=== PATIENT | male | born 1945 | race Caucasian/White ===

== ENCOUNTER 2018-01-08 17:05 | Emergency (ER) | payer MEDICARE ==
[2018-01-08] MEDS ORDERED: Labetalol 20 MG/4 ML Syringe IVPUSH ONE ×2 (17:22→18:05)
--- NOTE | 2018-01-08 17:23 | EDM.PDOC ---
ED HPI GENERAL MEDICAL PROBLEM - General Chief Complaint: Neurological Problem Stated Complaint: STROKE SYMPTOMS Time Seen by Provider: 01/08/18 17:25 Source of Information: Reports: Patient, Family History Limitations: Reports: No Limitations - History of Present Illness INITIAL COMMENTS - FREE TEXT/NARRATIVE: Pt arrived with a true expressive aphasia. He has been doing a fair amount of drinking and he has not been taking his meds regularly. Onset: Other (pt was last seen well at 11 pm last nite. ) Duration: Hour(s):, Other ( Pt came to the store this afternoon nd no one cou ld understand what he was saying. ) Location: Reports: Head, Other ( Pt is able to move all extremities and appeared to have normal strength) - Related Data Allergies Allergy/AdvReac Type Severity Reaction Status Date / Time azithromycin Allergy Cannot Verified 01/08/18 18:05 Remember erythromycin base Allergy Diarrhea Verified 09/24/13 14:48 [Erythromycin Base] gentamicin [Gentamicin] Allergy Rash Verified 09/24/13 14:48 Home Meds: Home Meds NK [No Known Home Meds] 09/24/13 [History] Social & Family History - Tobacco Use Smoking Status *Q: Current Every Day Smoker Years of Tobacco use: 50 Packs/Tins Daily: 1 - Alcohol Use Days Per Week of Alcohol Use: 7 Number of Drinks Per Day: 10 Total Drinks Per Week: 70 - Recreational Drug Use Recreational Drug Use: No ED ROS GENERAL - Review of Systems Review Of Systems: See Below Constitutional: Reports: No Symptoms HEENT: Reports: No Symptoms Respiratory: Reports: No Symptoms Cardiovascular: Reports: No Symptoms Endocrine: Reports: No Symptoms GI/Abdominal: Reports: No Symptoms : Reports: No Symptoms Musculoskeletal: Reports: No Symptoms Skin: Reports: No Symptoms Neurological: Reports: Other (pt has expressive apasia, he has no other defcits ) ED EXAM, NEURO - Physical Exam Exam: See Below Text/Narrative:: pt arrived with expressive apasia. He is moving all limbs and is walking ok. Exam Limited By: No Limitations General Appearance: Alert, No Apparent Distress, Other (He is not able to express himself. pupils equal and reactive. ) Ears: Normal TMs Nose: Normal Inspection Throat/Mouth: Normal Inspection Head Exam: Other (pt dose have some abrasions on the left side of his head and some bruising. ) Neck: Normal Inspection Respiratory/Chest: No Respiratory Distress Cardiovascular: Regular Rate, Rhythm, Tachycardia, Other (hypertension, Bp systolic greater than 200. ) GI/Abdominal: Soft, Non-Tender (Male) Exam: Deferred Rectal (Males) Exam: Deferred Neurological: Alert, Oriented x 3, Other (pt has expressive aphasia) Back Exam: Normal Inspection Extremities: Normal Inspection Course - Vital Signs Last Recorded V/S: Last Vital Signs Temp 36.4 C 01/08/18 17:22 Pulse 87 01/08/18 18:17 Resp 14 01/08/18 17:58 BP 178/98 H 01/08/18 18:17 Pulse Ox 98 01/08/18 17:22 - Orders/Labs/Meds Orders: Active Orders 24 hr Category Date Time Status EKG Documentation Completion [RC] ASDIRECTED Care 01/08/18 17:18 Active Head wo Cont [CT] Stat Exams 01/08/18 17:19 Taken UA W/MICROSCOPIC [URIN] Urgent Lab 01/08/18 17:18 Ordered Sodium Chloride 0.9% [Normal Saline] 1,000 ml Med 01/08/18 17:30 Active IV ASDIRECTED levETIRAcetam [Keppra] 1,000 mg Med 01/08/18 18:17 Active Sodium Chloride 0.9% [Normal Saline] 100 ml IV ONETIME EKG 12 Lead [EK] Routine Ther 01/08/18 17:18 Ordered Medication Orders Sodium Chloride (Normal Saline) 1,000 mls @ 125 mls/hr IV ASDIRECTED KELTON Last Admin: 01/08/18 17:55 Dose: 125 mls/hr Levetiracetam 1,000 mg/ Sodium (Chloride) 110 mls @ 400 mls/hr IV ONETIME ONE Stop: 01/08/18 18:31 Last Admin: 01/08/18 18:23 Dose: 400 mls/hr Labs: Laboratory Tests 01/08/18 01/08/18 01/08/18 Range/Units 17:18 17:18 17:51 WBC 11.3 H (4.5-11.0) K/uL RBC 3.75 L (4.30-5.90) M/uL Hgb 12.9 D (12.0-15.0) g/dL Hct 37.0 L (40.0-54.0) % MCV 99 H (80-98) fL MCH 34 H (27-31) pg MCHC 35 (32-36) % Plt Count 320 (150-400) K/uL Neut % (Auto) 77 H (36-66) % Lymph % (Auto) 10 L (24-44) % [place] % (Auto) 12 H (2-6) % Eos % (Auto) 1 L (2-4) % Baso % (Auto) 0 (0-1) % Sodium 135 L (140-148) mmol/L Potassium 3.8 (3.6-5.2) mmol/L Chloride 97 L (100-108) mmol/L Carbon Dioxide 27 (21-32) mmol/L Anion Gap 14.8 H (5.0-14.0) mmol/L BUN 24 H D (7-18) mg/dL Creatinine 1.3 (0.8-1.3) mg/dL Est Cr Clr Drug Dosing 44.10 mL/min Estimated GFR (MDRD) 55 L (>60) Glucose 116 H (74-106) mg/dL Calcium 9.1 (8.5-10.1) mg/dL Total Bilirubin 0.6 (0.2-1.0) mg/dL AST 27 (15-37) U/L ALT 17 (12-78) U/L Alkaline Phosphatase 100 (46-116) U/L Total Protein 7.4 (6.4-8.2) g/dL Albumin 3.5 (3.4-5.0) g/dL Globulin 3.9 H (2.3-3.5) g/dL Albumin/Globulin Ratio 0.9 L (1.2-2.2) Ethyl Alcohol < 3 mg/dL Meds: Medications Generic Name Dose Route Start Last Admin Trade Name Freq PRN Reason Stop Dose Admin Sodium Chloride 1,000 mls @ 125 mls/hr 01/08/18 17:30 01/08/18 17:55 Normal Saline IV 125 mls/hr ASDIRECTED KELTON Administration Levetiracetam 1,000 mg/ Sodium 110 mls @ 400 mls/hr 01/08/18 18:17 01/08/18 18:23 Chloride IV 01/08/18 18:31 400 mls/hr ONETIME ONE Administration Discontinued Medications Generic Name Dose Route Start Last Admin Trade Name Freq PRN Reason Stop Dose Admin Sodium Chloride Confirm 01/08/18 18:21 Normal Saline Administered 01/08/18 18:22 Dose 50 mls @ as directed .ROUTE .STK-MED ONE Sodium Chloride Confirm 01/08/18 18:24 Normal Saline Administered 01/08/18 18:25 Dose 100 mls @ as directed .ROUTE .STK-MED ONE Labetalol HCl 20 mg 01/08/18 17:22 01/08/18 17:55 Normodyne IVPUSH 01/08/18 17:23 20 mg NOW ONE Administration Protocol Labetalol HCl 20 mg 01/08/18 18:05 01/08/18 18:14 Normodyne IVPUSH 01/08/18 18:06 20 mg NOW ONE Administration Protocol - Re-Assessments/Exams Free Text/Narrative Re-Assessment/Exam: 01/08/18 18:14 Pt was given 2-- 20mg doses -- for bp . He had a normal ekg except for tachcardia. His creatnine is mildly elevated 01/08/18 18:18 This was discussed with neurosurgery and they wished for him to have a gm of kepara Departure - Departure Time of Disposition: 18:18 Disposition: DC/Tfer to Acute Hospital 02 Condition: Fair Clinical Impression: Subdural hematoma, acute, Hypertension - Discharge Information Referrals: PCP,None [Primary Care Provider] - Forms: ED Department Discharge Care Plan Goals: transfer to [facility]. - My Orders Last 24 Hours: My Active Orders 01/08/18 17:18 EKG Documentation Completion [RC] ASDIRECTED UA W/MICROSCOPIC [URIN] Urgent EKG 12 Lead [EK] Routine 01/08/18 17:19 Head wo Cont [CT] Stat 01/08/18 17:30 Sodium Chloride 0.9% [Normal Saline] 1,000 ml IV ASDIRECTED 01/08/18 18:17 levETIRAcetam [Keppra] 1,000 mg Sodium Chloride 0.9% [Normal Saline] 100 ml IV ONETIME - Assessment/Plan Last 24 Hours: My Active Orders 01/08/18 17:18 EKG Documentation Completion [RC] ASDIRECTED UA W/MICROSCOPIC [URIN] Urgent EKG 12 Lead [EK] Routine 01/08/18 17:19 Head wo Cont [CT] Stat 01/08/18 17:30 Sodium Chloride 0.9% [Normal Saline] 1,000 ml IV ASDIRECTED 01/08/18 18:17 levETIRAcetam [Keppra] 1,000 mg Sodium Chloride 0.9% [Normal Saline] 100 ml IV ONETIME
[2018-01-08] MEDS ORDERED: Sodium Chloride 0.9% 1,000 ML IV SCH (17:30)
[2018-01-08] MEDS ORDERED: levETIRAcetam 1,000 MG in Sodium Chloride 0.9% 100 ML IV ONE (18:17)
[2018-01-08] MEDS ORDERED: Sodium Chloride 0.9% 50 ML ONE (18:21)
[2018-01-08] MEDS ORDERED: Sodium Chloride 0.9% 100 ML ONE (18:24)
[2018-01-08] MEDS ORDERED: Acetaminophen 500 MG Tab PO ONE (19:01)
== END 2018-01-08 19:30 ==
LOC: JP.ED 17:05
DX: I62.01 Nontraumatic acute subdural hemorrhage (principal); I10 Essential (primary) hypertension; Z88.1 Allergy status to other antibiotic agents; F17.210 Nicotine dependence, cigarettes, uncomplicated
CPT/HCPCS: 36415; 70450; 80053; 85025; 93005; 96361; 96365; 96375; 99285; A9270; G0480; J1953; J7030; J7040

== ENCOUNTER 2020-03-23 01:50 | Emergency (ER) | payer MEDICARE, MEDICAID ==
[2020-03-23] MEDS ORDERED: amLODIPine 5 MG Tab PO ONE (02:04)
--- NOTE | 2020-03-23 02:17 | EDM.PDOC ---
ED HPI GENERAL MEDICAL PROBLEM - General Chief Complaint: Neuro Symptoms/Deficits Stated Complaint: MEDICAL VIA [facility] Time Seen by Provider: 03/23/20 02:05 Source of Information: Reports: Patient, EMS, Old Records, RN History Limitations: Reports: No Limitations - History of Present Illness INITIAL COMMENTS - FREE TEXT/NARRATIVE: 74 yo male from [facility] presents via EMS with about a 20 min period of R arm numbness/weakness that has since resolved. He has a slightly worse HEATH tonight that has been present for about 3 d. Is on amlodipine 2.5 mg daily and says he BP has been in the 130's/80's up until tonight. Does have a pHx of TIA's. Has a pHx of both ETOH and tobacco abuse. 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 PHx also of some CRF/chronic lung dz as well. Onset: Today, Sudden Onset Date: 03/23/20 Duration: Minutes: (~20), Resolved Prior to Arrival Location: Reports: Upper Extremity, Right Quality: Reports: Other (numbness) Severity: Moderate Improves with: Reports: Other (time-resolved on arrival ) Worsens with: Reports: Other (uncertain) Context: Reports: Other (See HPI) Associated Symptoms: Reports: Headaches (mild L sided) Treatments FIRST AID INSTRUCTOR: Reports: Other (see below) (none) Headache Pain Score (Numeric/FACES): 3 - Related Data Allergies Allergy/AdvReac Type Severity Reaction Status Date / Time azithromycin Allergy Cannot Verified 03/23/20 02:01 Remember erythromycin base Allergy Diarrhea Verified 03/23/20 02:01 [Erythromycin Base] gentamicin [Gentamicin] Allergy Rash Verified 03/23/20 02:01 Home Meds: Home Meds Mag Oxide/D3/Turmeric Rt Xt [Magnesium-Vit D3-Turmeric Cap] 400 mg PO DAILY 03/23/20 [History] Omeprazole 20 mg PO DAILY 03/23/20 [History] Tiotropium [Spiriva Handihaler] 2 dose INH DAILY 03/23/20 [History] amLODIPine [Norvasc] 2.5 mg PO DAILY 03/23/20 [History] carvediloL [Carvedilol] 1 tab PO BID 03/23/20 [History] ED ROS GENERAL - Review of Systems Review Of Systems: See Below Constitutional: Reports: No Symptoms HEENT: Reports: No Symptoms Respiratory: Reports: No Symptoms Cardiovascular: Reports: No Symptoms GI/Abdominal: Reports: No Symptoms : Reports: No Symptoms Musculoskeletal: Reports: No Symptoms Skin: Reports: No Symptoms Neurological: Reports: Headache (mild), Numbness (R am resolved on arrival), Weakness (R arm, resolved on arrival) ED EXAM, NEURO - Physical Exam Exam: See Below Exam Limited By: No Limitations General Appearance: Alert, WD/WN, No Apparent Distress Eye Exam: Bilateral Eye: EOMI, Normal Inspection, PERRL Ears: Normal External Exam, Normal Canal, Hearing Loss Nose: Normal Inspection, No Blood Throat/Mouth: Normal Inspection, Normal Lips, Normal Oropharynx, Normal Voice, No Airway Compromise Head Exam: Atraumatic, Normocephalic Neck: Normal Inspection Respiratory/Chest: No Respiratory Distress, Lungs Clear, Normal Breath Sounds, No Accessory Muscle Use Cardiovascular: Regular Rate, Rhythm, No Edema GI/Abdominal: Normal Bowel Sounds, Soft, Non-Tender, No Distention Neurological: Alert, Normal Mood/Affect, CN II-XII Intact, No Motor/Sensory Deficits, Oriented x 3, Other (no neuro deficits) Back Exam: Normal Inspection Extremities: Normal Inspection, Normal Range of Motion, Non-Tender, No Pedal Edema Psychiatric: Normal Affect, Normal Mood Skin Exam: Warm, Dry, Intact, Normal Color, No Rash EKG INTERPRETATION EKG Date: 03/23/20 Time: 02:15 Rhythm: NSR Rate (Beats/Min): 86 [place]: Normal P-Wave: Present QRS: Normal ST-T: Normal (LVH present) QT: Prolonged (borderline) Comparison: No Change Course - Vital Signs Last Recorded V/S: Last Vital Signs Temp 35.7 C L 03/23/20 02:50 Pulse 84 03/23/20 02:50 Resp 16 03/23/20 02:50 BP 170/94 H 03/23/20 02:50 Pulse Ox 98 03/23/20 02:50 - Orders/Labs/Meds Orders: Active Orders 24 hr Category Date Time Status Cardiac Monitoring [RC] .As Directed Care 03/23/20 02:00 Active EKG Documentation Completion [RC] ASDIRECTED Care 03/23/20 02:00 Active Aspirin Med 03/23/20 04:34 Once 324 mg PO ONETIME ONE EKG 12 Lead [EK] Routine Ther 03/23/20 02:00 Ordered Labs: Laboratory Tests 03/23/20 03/23/20 03/23/20 Range/Units 02:05 02:05 02:30 WBC 11.7 H (4.5-11.0) K/uL RBC 4.97 (4.30-5.90) M/uL Hgb 14.7 (12.0-15.0) g/dL Hct 44.6 (40.0-54.0) % MCV 90 (80-98) fL MCH 30 (27-31) pg MCHC 33 (32-36) % Plt Count 256 (150-400) K/uL Sodium 136 L (140-148) mmol/L Potassium 3.9 (3.6-5.2) mmol/L Chloride 101 (100-108) mmol/L Carbon Dioxide 23 (21-32) mmol/L Anion Gap 15.9 H (5.0-14.0) mmol/L BUN 29 H (7-18) mg/dL Creatinine 1.7 H (0.8-1.3) mg/dL Est Cr Clr Drug Dosing 35.44 mL/min Estimated GFR (MDRD) 40 L (>60) Glucose 139 H (74-106) mg/dL Calcium 9.0 (8.5-10.1) mg/dL Troponin I 0.020 (0.000-0.056) ng/mL Urine Color Yellow (YELLOW) Urine Appearance Clear (CLEAR) Urine pH 7.0 (5.0-8.0) Ur Specific [place] 1.020 (1.008-1.030) Urine Protein 100 H (NEGATIVE) mg/dL Urine Glucose (UA) Negative (NEGATIVE) mg/dL Urine Ketones Negative (NEGATIVE) mg/dL Urine Occult Blood Trace-lysed H (NEGATIVE) Urine Nitrite Negative (NEGATIVE) Urine Bilirubin Negative (NEGATIVE) Urine Urobilinogen 0.2 (0.2-1.0) EU/dL Ur Leukocyte Esterase Negative (NEGATIVE) Urine RBC 0-5 (0-5) Urine WBC 0-5 (0-5) Ur Epithelial Cells Rare Amorphous Sediment Not seen Urine Bacteria Few Urine Mucus Not seen 03/23/20 Range/Units 04:05 WBC (4.5-11.0) K/uL RBC (4.30-5.90) M/uL Hgb (12.0-15.0) g/dL Hct (40.0-54.0) % MCV (80-98) fL MCH (27-31) pg MCHC (32-36) % Plt Count (150-400) K/uL Sodium (140-148) mmol/L Potassium (3.6-5.2) mmol/L Chloride (100-108) mmol/L Carbon Dioxide (21-32) mmol/L Anion Gap (5.0-14.0) mmol/L BUN (7-18) mg/dL Creatinine (0.8-1.3) mg/dL Est Cr Clr Drug Dosing mL/min Estimated GFR (MDRD) (>60) Glucose (74-106) mg/dL Calcium (8.5-10.1) mg/dL Troponin I < 0.017 (0.000-0.056) ng/mL Urine Color (YELLOW) Urine Appearance (CLEAR) Urine pH (5.0-8.0) Ur Specific [place] (1.008-1.030) Urine Protein (NEGATIVE) mg/dL Urine Glucose (UA) (NEGATIVE) mg/dL Urine Ketones (NEGATIVE) mg/dL Urine Occult Blood (NEGATIVE) Urine Nitrite (NEGATIVE) Urine Bilirubin (NEGATIVE) Urine Urobilinogen (0.2-1.0) EU/dL Ur Leukocyte Esterase (NEGATIVE) Urine RBC (0-5) Urine WBC (0-5) Ur Epithelial Cells Amorphous Sediment Urine Bacteria Urine Mucus Meds: Medications Discontinued Medications Generic Name Dose Route Start Last Admin Trade Name Freq PRN Reason Stop Dose Admin Amlodipine Besylate 10 mg 03/23/20 02:04 03/23/20 02:24 Norvasc PO 03/23/20 02:05 10 mg ONETIME ONE Administration - Radiology Interpretation Free Text/Narrative:: Head CT scan-neg CT Results Date: 03/23/20 CT Results Time: 02:56 - Re-Assessments/Exams Free Text/Narrative Re-Assessment/Exam: 03/23/20 04:38 Headache gone with our BP reduction. R Arm sx's did not return. Departure - Departure Time of Disposition: 04:40 Disposition: Home, Self-Care 01 Condition: Fair Clinical Impression: TIA (transient ischemic attack) HTN (hypertension) Qualifiers: Hypertension type: essential hypertension Qualified Code(s): I10 - Essential (primary) hypertension - Discharge Information *PRESCRIPTION DRUG MONITORING PROGRAM REVIEWED*: No *COPY OF PRESCRIPTION DRUG MONITORING REPORT IN PATIENT ANTONIA: No Instructions: Transient Ischemic Attack, [id number], Hypertension, Adult, [id number] Referrals: PCP,None [Primary Care Provider] - Forms: ED Department Discharge Additional Instructions: Increase your amlodipine to 5 mg daily. Take a baby aspirin daily with food. Recheck with your doctor next week to adjust your BP meds and to decide if he wants to perform carotid ultrasound on you. Sepsis Event Note (ED) - Evaluation Sepsis Screening Result: No Definite Risk - Focused Exam Vital Signs: Vital Signs Temp Pulse Resp BP BP Pulse Ox 03/23/20 02:50 35.7 C L 84 16 170/94 H 98 03/23/20 02:24 210/110 H 03/23/20 01:57 35.7 C L 84 16 210/110 H 96 - My Orders Last 24 Hours: My Active Orders 03/23/20 02:00 Cardiac Monitoring [RC] .As Directed EKG Documentation Completion [RC] ASDIRECTED EKG 12 Lead [EK] Routine 03/23/20 04:34 Aspirin 324 mg PO ONETIME ONE - Assessment/Plan Last 24 Hours: My Active Orders 03/23/20 02:00 Cardiac Monitoring [RC] .As Directed EKG Documentation Completion [RC] ASDIRECTED EKG 12 Lead [EK] Routine 03/23/20 04:34 Aspirin 324 mg PO ONETIME ONE
--- NOTE | 2020-03-23 02:53 | CRLCT ---
INDICATION: Right arm numbness TECHNIQUE: CT head without contrast. COMPARISON: Head CT 02/07/2018 FINDINGS: CSF spaces: Within normal limits for age. Brain parenchyma: Hwang-white differentiation is distinct. No intracranial bleed or mass effect. Small amount of low density in the deep white matter. Skull base and calvarium: The visualized paranasal sinuses and mastoid air cells demonstrate no acute or significant findings. The visualized orbits are grossly unremarkable. No skull fractures. Atherosclerosis. IMPRESSION: 1. No intracranial bleed or mass effect. 2. Nonspecific white matter disease, likely microangiopathy. Please note that all CT scans at this facility use dose modulation, iterative reconstruction, and/or weight-based dosing when appropriate to reduce radiation dose to as low as reasonably achievable. Dictated by Lai Arauz MD @ Mar 23 2020 2:49AM Signed by Dr. Lai Arauz @ Mar 23 2020 2:51AM
[2020-03-23] MEDS ORDERED: Aspirin 81 MG Tab.Chew PO ONE (04:34)
== END 2020-03-23 05:02 | disposition home or self-care (01) ==
LOC: JP.ED 01:50
DX: G45.9 Transient cerebral ischemic attack, unspecified (principal); I10 Essential (primary) hypertension; Z88.1 Allergy status to other antibiotic agents; Z79.899 Other long term (current) drug therapy
CPT/HCPCS: 36415; 70450; 80048; 81001; 84484; 85027; 93005; 99285; A9270; 93010